=== PATIENT | male | born 1965 | race Caucasian/White ===

== ENCOUNTER → 2017-03-28 | Outpatient (CLI) | payer OTHER ==
[2017-03-28 13:57] VITALS: BP 186/92; PULSE 106; RESP 18; TEMP 98.3
--- NOTE | 2017-03-28 15:27 | P.CONS ---
History of Present Illness - Reason for Consult Consult date: 03/28/17 - History of Present Illness This is follow-up visit for this 52 years old male , last seen in April 2015, at that time patient was complaining of severe low back pain and tingling sensation, and continued to have the same problem, is complaining of increased low back pain, localized in the low back area, and is not radiated, he never had any interventional pain management, and he was getting pain medication, he reported that the intensity of the pain 8/10 increased with any activity, he is able to ambulate without any difficulty, his currently taking only Motrin 800 mg 3 times a day, he is here asking for pain medication. Past Medical History Past Medical History: Hypertension Additional Past Medical History / Comment(s): Orbited obesity ,degenerative disk disease. History of Any Multi-Drug Resistant Organisms: None Reported Past Surgical History: No Surgical Hx Reported Past Anesthesia/Blood Transfusion Reactions: No Reported Reaction Past Psychological History: Depression Smoking Status: Former smoker - Past Family History Mother Family Medical History: Fibromyalgia Additional Family Medical History / Comment(s): post polio syndrome Sister(s) Family Medical History: Fibromyalgia Medications and Allergies Home Medications Medication Instructions Recorded Confirmed Type Ibuprofen [Motrin] 600 mg PO DIRECTED PRN 03/28/17 03/28/17 History amLODIPine [Norvasc] 03/28/17 History Allergies Allergy/AdvReac Type Severity Reaction Status Date / Time steroids AdvReac Rash/Hives Uncoded 03/28/17 13:44 Physical Exam Vitals: Vital Signs Temp Pulse Resp BP Pulse Ox 03/28/17 13:46 98.3 F 106 H 18 186/92 99 Intake and Output 03/28/17 03/28/17 03/28/17 06:59 14:59 22:59 Other: Weight 175.54 kg Patient Weight 03/29/17 06:59 Weight 175.54 kg Physical Examinations : 1-Constitutiona : Cooperative , not in acute distress . 2-HEENT : nech ; supple , no Lymphadenopathy , normal thyroid size . eyes : no ptosis , no icterus, no photophobia . ENT : normal of hearing , normal oropharynx , no Thrush . 3- Respiratory : Chest clear to auscultations Bilaterally , no wheezing , no Rhonchi . 4- Cardiovascular : regular rate and rhythem , S1 , S2 , no S3 , no S4. 5- Gastrointestinal : abdomen soft no tenderness , bowel sounds positive all four quadrents , no organomegally . 6- Genitourinary : Defferred . 7- neurologic : Cranial nerve II to XII intact , no focal neurological deffecit . 8-psychatric : alert , oriented X 3 , appropriate affect , intact judgment and insight . 9-Lymphatic : no Lymphadenopathy . 10- musculoskeltal : cervical spine = motor stregnth in the deltoid and biceps, Lumber spine = normal moter stegnth lower extremities ,thigh and legs .5/5 deep tendon reflexes : normal Knee Jerk , normal ankle Jerk . positive lumber facet Loading Test strait leg raising test negative bilaterally Fabere test negative bilaterally moderate tenderness over the Sacroiliac joint on the Right , and Left side Results Comments: MRI of the lumbar spine= lumbar spondylosis L4 5 and L5-S1, with degenerative disc disease Assessment and Plan Plan: Assessment and plan= chronic low back pain secondary to lumbar degenerative disc disease , lumbar spondylosis with lumbar facet arthropathy , Patient could benefit from diagnostic medial branch block lumbar area l3-4 / L4 5/L5-S1, and if it's possible proceed with a radiofrequency ablation of the medial branch Also patient given prescription for Motrin 800 mg every 8 hours when necessary for pain dispense 90 with 1 refill, and Neurontin 300 mg twice a day dispense 60 with one refill, he will be scheduled for diagnostic medial branch block lumbar area Time with Patient: Greater than 30
== END ==
LOC: PNWHC3 13:37
PROVIDERS: ATTEND Specialist
DX: M51.36 Other intervertebral disc degeneration, lumbar region (principal); M47.816 Spondylosis without myelopathy or radiculopathy, lumbar region; M46.86 Other specified inflammatory spondylopathies, lumbar region; G89.29 Other chronic pain; Z87.891 Personal history of nicotine dependence
CPT/HCPCS: 99211